=== PATIENT | male | born 1940 | race Caucasian/White ===

== ENCOUNTER → 2016-08-18 | Outpatient (CLI) | payer MEDICARE, OTHER ==
--- NOTE | 2016-08-18 16:34 | RADRPT ---
PROCEDURE: XR pelvis/left hip. CLINICAL INDICATION: Hip pain TECHNIQUE: AP pelvis/AP and lateral left hip views performed COMPARISON: No prior studies are available for comparison. FINDINGS: There is severe left hip osteoarthrosis and moderate to severe right hip osteoarthrosis. This is ass ociated with joint space narrowing, subchondral sclerosis , subchondral cyst formation and osteophyt osis. There is normal mineralization. No fractures or osseous lesions are identified. The soft ti ssues are unremarkable. IMPRESSION: Severe left hip osteoarthrosis. Moderate right hip osteoarthrosis RPTAT: [facility] .Jaspreet Lowe MD, Date Time Electronically viewed and signed by .Jaspreet Lowe MD, on 08/18/2016 16:33 .B/
== END | disposition home or self-care (01) ==
LOC: HKI 13:27
PROVIDERS: ATTEND Orthopaedic Surgery
DX: M16.0 Bilateral primary osteoarthritis of hip (principal); M25.552 Pain in left hip; M25.551 Pain in right hip
CPT/HCPCS: 73502; G0463